=== PATIENT | female | born 1980 | race Caucasian/White ===

== ENCOUNTER 2019-03-16 22:05 | Emergency (ER) | payer SELFPAY ==
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
[2019-03-16] MEDS ORDERED: ACETAMINOPHEN 325 MG TABLET PO ONE (22:33)
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
[2019-03-17] MEDS ORDERED: MORPHINE SULFATE 10 MG/ML INJ IM ONE (01:29)
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
[2019-03-17 02:03] LABS: ABSOLUTE BASOPHILS # (AUTO) 0.1 10^3/uL (0.0-0.2); ABSOLUTE EOSINOPHILS # (AUTO) 0.1 10^3/uL (0.0-0.6); ABSOLUTE LYMPHOCYTES (AUTO) 3.1 10^3/uL (0.5-4.7); ABSOLUTE NEUT (AUTO) 6.7 10^3/uL (1.7-8.2); BASOPHILS % (AUTO) 0.7 % (0-2); EOSINOPHILS % (AUTO) 0.6 % (0-6); HEMATOCRIT 40.8 % (36.0-47.0); HEMOGLOBIN 13.8 g/dL (12.0-15.5); LYMPHOCYTES % (AUTO) 28.1 % (13-45); MEAN CORPUSCULAR HEMOGLOBIN 29.3 pg (27.0-33.4); MEAN CORPUSCULAR HGB CONC 33.8 g/dL (32.0-36.0); MEAN CORPUSCULAR VOLUME 87 fl (80-97); MONOCYTES % (AUTO) 8.7 % (3-13); PLATELET COUNT 368 10^3/uL (150-450); RED BLOOD COUNT 4.72 10^6/uL (3.72-5.28); RED CELL DISTRIBUTION WIDTH 12.8 % (11.5-14.0); SEGMENTED NEUTROPHILS % (AUTO) 61.9 % (42-78); TOTAL CELLS COUNTED % (AUTO) 100 %; WHITE BLOOD COUNT 10.9 10^3/uL (4.0-10.5)
[2019-03-17 02:08] LABS: INTERNATIONAL RATION (INR) 1.02; PROTHROMBIN TIME 13.5 SEC (11.4-15.4)
[2019-03-17 02:09] LABS: PARTIAL THROMBOPLASTIN TIME 28.4 SEC (23.5-35.8)
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
[2019-03-17 03:47] VITALS: BP 130/68
== END 2019-03-17 03:50 | disposition home or self-care (01) ==
LOC: ER 22:05
DX: S70.12XA Contusion of left thigh, initial encounter (principal); S20.211A Contusion of right front wall of thorax, initial encounter; V86.59XA Driver of other special all-terrain or other off-road motor vehicle injured in nontraffic accident, initial encounter; F17.210 Nicotine dependence, cigarettes, uncomplicated
CPT/HCPCS: 99284; 96374; 36415; 85025; 85610; 85730; 73552; 71101; 73700; J2270

== ENCOUNTER 2019-03-21 16:22 | Emergency (ER) | payer SELFPAY ==
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
[2019-03-21 19:31] VITALS: BP 129/70
--- NOTE | 2019-03-22 09:15 | XCELERA REPORT ---
[address] [facility] [address] Lower Extremity Venous Evaluation Procedure: Color flow and duplex imaging of the veins of the left lower extremity as well as the right Common Femoral vein. Right Sided Venous Evaluation The right common femoral vein is fully compressible. Spontaneous and phasic flow is present in the right common femoral vein. Left Sided Venous Evaluation Normal vessel filling wall to wall, compression and augmentation as well as Colour flow down to the infrageniculate veins. Interpretation Summary No duplex evidence of DVT or obstruction in the left lower extremity nor in the right Common Femoral vein. Name: LULÚ IBARRA Age: 38 yrs Gender: Female : 1980 Patient Status: Emergency Patient Location: ER Study Date: 03/21/2019 05:27 PM Reason For Study: Lt LE hematoma/pain Ordering Physician: GARY FRYE Performed By: Roberta Colon : GARY FRYE > Griffin Arredondo
== END 2019-03-21 19:42 | disposition home or self-care (01) ==
LOC: ER 16:22
DX: S70.12XA Contusion of left thigh, initial encounter (principal); M79.605 Pain in left leg; V86.59XA Driver of other special all-terrain or other off-road motor vehicle injured in nontraffic accident, initial encounter
CPT/HCPCS: 93971; 99283